=== PATIENT | female | born 1945 | race Caucasian/White ===

== ENCOUNTER → 2022-06-03 01:38 | Outpatient (CLI) | payer MEDICARE, SELFPAY ==
--- NOTE | 2022-06-03 07:30 | DI.CT_ITS ---
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 TECHNIQUE: Imaging Protocol: Axial computed tomography images with coronal and sagittal reformatted images were created and reviewed. CONTRAST MATERIAL: Intravenous: Omnipaque 350 Contrast volume:100mL COMPARISON: No exams were available for comparison FINDINGS: Orbits and orbital soft tissues: Within normal limits. Visualized paranasal sinuses: There is mucosal thickening in the visualized paranasal sinuses with s paring of the left sphenoid sinus. No fluid levels are seen. The mastoid air cells are clear. Nasopharynx: Within normal limits. Oropharynx: Within normal limits. Hypopharynx and larynx: The left aryepiglottic fold has a slightly more medial position compared to t he right. The left piriform sinus is larger than the right. The epiglottis has an unremarkable appe arance. No mass is seen in the region of the vocal cords. Retropharyngeal space: Within normal limits. Parotids/submandibular: Within normal limits. Thyroid gland: Within normal limits. Lymphadenopathy: There is scattered lymph nodes seen along the level one to level three all measurin g less than 8 mm in short axis diameter which are physiologic in nature. Trachea: Within normal limits. Lung apices: Bilateral apical scarring. Bones: Within normal limits for the patient's age. Carotids/Jugular: Within normal limits. Soft tissues: Within normal limits. IMPRESSION: 1. No evidence of a mass in the region of the vocal cords. 2. Slightly more medial position of the left aryepiglottic fold compared to the right. No mass is id entified. Direct visualization should be considered for further evaluation. RADIATION DOSE DELIVERED: 300.79mGy.cm Total DLP 300.79mGy.cm Total DLP DATA REPOSITORY: All CT scans at this facility are submitted to the National Radiology Data Registry (NRDR) Dose Index Registry (DIR) with the [employer] (ACR). RADIATION OPTIMIZATION: All CT scans at this facility use at least one of these dose optimization te chniques: automated exposure control; mA and/or kV adjustment per patient size (includes targeted exa ms where dose is matched to clinical indication); or iterative reconstruction.
[2022-06-03 13:35] LABS: CREATININE 0.9 mg/dL (0.55-1.02)
[2022-06-03] MEDS: Omnipaque 350 MG/ML 100 ML BTL IJ (14:13)
[2022-06-03] MEDS: Normal Saline Flush 10 ML SYR IVP (14:15)
== END ==
PROVIDERS: PCP Internal Medicine; Visit Provider Otolaryngology
DX: J38.01 Paralysis of vocal cords and larynx, unilateral (principal); R49.0 Dysphonia
CPT/HCPCS: 70491; 82565; J3490

== ENCOUNTER → 2022-10-17 00:15 | Outpatient (CLI) | payer MEDICARE, SELFPAY ==
--- OUTSIDE RECORDS SUMMARY | 2022-10-17 00:21 | XMS_ITS | Encounter Summary ---
:1945 Author Organization [facility] [place] [address] Care Team Providers Name Role Phone Arpita Thompson MD Primary Care Provider Reason for Visit Reason Onset Date Comments Medication Refill 06/27/2022 Encounter Details Date Type Department Care Team Description 06/27/2022 Refill Dermatology at [facility] Jennifer Young MD Dermatitis [address] [place] [address] [facility]DER[facility] [phone] [place], [place] [address] (Wo rk) Social History Tobacco Use Types Packs/Day Years Used Date Smoking Tobacco: Never Assessed Sex Assigned at Date Recorded Not on file documented as of this encounter Miscellaneous Notes Telephone Encounter - Ofe Gibbons CMA - 06/27/2022 10:01 AM EDT Medication(s) requested to refill hydroxyzine 10 mg Last visit: 06/16/22 Follow up recommended 4-6 weeks F/U Scheduled: 08/06/22 Assessment/Plan for this/these medications: eczematous dermatitis Special Considerations: none Order/orders pended and routed to Dr. Young for review and approval documented in this encounter Plan of Treatment Upcoming Encounters Date Type Specialty Care Team Description 10/29/2022 Office Visit Dermatology Alexandra Howell MD [facility] ER [address] [facility] [place], [place] [address] (Wo rk) documented as of this encounter Visit Diagnoses Diagnosis Dermatitis Contact dermatitis and other eczema, due to unspecified cause documented in this encounter Care Teams Landscape Management Technician Relationship Specialty Start Date End Date Arpita Thompson MD PCP - General General Internal Medicine 06/16/22 [address] [facility] [place] [address] documented as of this encounter
--- OUTSIDE RECORDS SUMMARY | 2022-10-17 00:21 | XMS_ITS | Encounter Summary ---
:1945 Author Organization [facility] [place] [address] Care Team Providers Name Role Phone Arpita Thompson MD Primary Care Provider Encounter Details Date Type Department Care Team Description 06/27/2022 Orders Only Dermatology at [facility] Jennifer Young MD Dermatitis [address] [facility] [place] [address] [facility]-DERMATOLOGY [phone] [place], [place] [address] (Wo rk) Social History Tobacco Use Types Packs/Day Years Used Date Smoking Tobacco: Never Assessed Sex Assigned at Date Recorded Not on file documented as of this encounter Plan of Treatment Upcoming Encounters Date Type Specialty Care Team Description 10/29/2022 Office Visit Dermatology Alexandra Howell MD [facility] ER [address] [facility], [place] [address] (Wo rk) documented as of this encounter Visit Diagnoses Diagnosis Dermatitis Contact dermatitis and other eczema, due to unspecified cause documented in this encounter Care Teams Shotgun Shell Assembly Machine Adjuster Relationship Specialty Start Date End Date Arpita Thompson MD PCP - General General Internal Medicine 06/16/[address] [place] [id number] documented as of this encounter
--- OUTSIDE RECORDS SUMMARY | 2022-10-17 00:21 | XMS_ITS | Encounter Summary ---
:1945 Author Organization [facility] [place] [address] Care Team Providers Name Role Phone Arpita Thompson MD Primary Care Provider Reason for Visit Reason Comments Rash Consultation (Urgent) - Authorized Specialty Diagnoses / Procedures Referred By Contact Refer red To Contact Dermatology Diagnoses Atopic Dermatitits, Unspecified Arpita Thompson MD [facility] Dermatology Procedures Atopic Dermatitits, Unspecified [address] [place] [place] [address] [place] [address] Referral ID Status Reason Start Expiration Visits Visits Date Date Requested Authorized [id number] Authorized Consult, 05/29/2022 05/29/2023 3 3 Test & Treat PCP Updated and/or Approved Encounter Details Date Type Department Care Team Description 06/16/2022 Office Visit Dermatology at [facility] Jennifer Young MD Dermatitis [address] [facility] [place] [address] [place] [address] RD-DERMATOLOGY [phone] [place], [place] [address] (Wo rk) Social History Tobacco Use Types Packs/Day Years Used Date Smoking Tobacco: Never Assessed Sex Assigned at Date Recorded Not on file documented as of this encounter Progress Notes Jennifer Young MD - 06/16/2022 11:00 AM EDT Images from the original note were not included. DEPARTMENT OF DERMATOLOGY Medical Dermatology Clinic Note Provider: Jennifer Young MD Patient's preferred name Domitila Preferred contact method for results []Phone []myD-H []Letter Detailed phone message OK? Y Are there any other people with whom we may discuss your care? Y Past Medical History Date, location, treatment Melanoma Dysplastic nevi SCC BCC AKs UV Exposure & Protection Other relevant past medical history Family History Details Melanoma * NMSC * Other relevant family history Social History Occupation: Hobbies: Other: Pre-Procedure Questions Details Allergy to lidocaine, epinephrine, Dermabond, chlorhexidine, or adhesives Bleeding disorder or blood thinners Implanted devices (Pacemaker, defibrillator, deep brain stimulator, cochlear implant) History of Present Illness: Domitila Frank is a 76 y.o. Patient is referred to the clinic at the request of Arpita Thompson for new rash. - Started on lower legs in February 11 that were very itchy and treated with ivermectin (twice) after PCP thought was scabies. No other topical steroids have been trialed. Here with her spouse Yunior. -She has been itching -Using Eucerin soap, colloidal oatmeal, Sarna Anti itch, cortisone cream & Cera Va lotion -Says from mid afternoon until nighttime itch rated as a 10 almost unbearable -Denies any new medications in past year other than itching medications -Taking Tumeric ~weeks -Was taking Tylenol for aches & pains, now takes Motrin instead -Denies any pets or any other people in home with similar rash -Has not treated with either oral or topical steroids Review of Systems: General: Feeling well. Skin: No other skin concerns. Medications: Reviewed in eD-H Allergies: Reviewed in eD-H Skin Examination: Full skin examination: Patient asked to undress to their comfort level. Verbalized that the provider???s preference is that the patient remove all clothing and that the provider will not examine areas patient elects to keep covered. Patient elects to keep underwear on and have the following examined: s calp, hair, face, ears, neck, chest, axillae, abdomen, back, and upper and lower extremities. Genitalia and buttocks were not examined. Assessment/Plan #. Favor eczematous dermatitis EXAM: Scattered pnk eroded papules on the arms, back, chest, and legs. Urticarial plaquess on the bilateral flanks - 4 month hx of pruritic rash. Denies new medication, personal care product. No close contact with similar symptoms. No pets. - Medications reviewed, no culprit medication identified - Recommend sensitive skin care, given extensive involvement will initiate on prednisone taper with topical steroids. If no improvement, consider biopsy PLAN: - Rx: Prednisone taper. 40mg each morning x 5 days, then 30mg each morning x 5 days, then 20mg each morning x 5 days. Reviewed side effects, including but not limited to GI upset, mood change, irritability, difficulty sleeping, increases in blood pressure, increase in blood sugar, thinning of skin andbones, osteonecrosis of the hip. - Start Rx: Hydroxyzine 10 mg tablet can take up to 3 tablets daily for itch - Discussed risks of prolonged topical corticosteroid use including atrophy, striae, hypopigmentation, tachyphylaxis. -Will plan to recheck in 4-6 weeks; if symptoms persist or worsen we will consider biopsy - Start Rx: Triamcinolone 0.1% cream: Apply twice daily to affected areas of the trunk and extremities for 14 days, then take 1 week off, repeat as needed. - Gentle skin care reviewed with patient, including: - Wash skin daily with gentle soap, such as Dove sensitive skin bar soap or Vanicream bar soap. Use soap only on armpits, groin, face, feet. - Take luke warm, not hot showers/baths. - Avoid scrubbing with sponge, loofah or washcloth. - Moisturize skin daily with vaseline or thick moisturizing cream such as Vanicream Moisturizing Cream, CeraVe Cream, or Aveeno Eczema Therapy Cream. Ideally, moisturizer should be applied immediately after bathing. - Use a fragrance free laundry detergent such as Tide Free & Gentle or All Free & Clear. Figure 1 Photo(s) taken and charted with patient's verbal consent. Other: ??? Reviewed external notes/records ??? OTC skin products discussed RTC: 4-6 weeks for rash f/u []Note routed to typing secretary []Recall placed in scheduling system []Appointment scheduled at checkout I performed the above scribed service and agree with the accuracy of the documentation in this encounter. Reviewed and signed by: Jennifer Young MD Dermatology [facility] Patient seen and evaluated with staff corporate health consultant: Bryan Trevino MD Department of Dermatology [facility] Bryan Trevino MD - 06/16/2022 11:00 AM EDT I directly supervised Dr. Young in the care of this patient. I saw and evaluated this patient with Dr. Young She presented the history and physical exam details to me, then we saw the patient together and I confirmed these findings. I agree with details as written.My physical examination confirms her findings. The assessment and plan were formulated in discussion with me at the time of visit and I agree with them as documented. Bryan Trevino MD FAAD Staff Physician Department of Dermatology documented in this encounter Plan of Treatment Upcoming Encounters Date Type Specialty Care Team Description 10/29/2022 Office Visit Dermatology Alexandra Howell MD [facility] ER [address] [facility], [place] [address] (Wo rk) documented as of this encounter Visit Diagnoses Diagnosis Dermatitis Contact dermatitis and other eczema, due to unspecified cause documented in this encounter Care Teams Enrichment Teacher Relationship Specialty Start Date End Date Arpita Thompson MD PCP - General General Internal Medicine 06/16/[address] [facility] [place] [address] documented as of this encounter
--- OUTSIDE RECORDS SUMMARY | 2022-10-17 00:21 | XMS_ITS | Clinical Summary ---
:1945 Author Organization [facility] [place] [address] Care Team Providers Name Role Phone Arpita Thompson MD Primary Care Provider Allergies Active Allergy Reactions Severity Noted Date Comments Sulfa (Sulfonamide Antibiotics) High CIS - Hives Medications Medication Sig Dispensed Refills Start Date End Date Status fluticasone-salmeter 0 06/25/2006 Active ol (ADVAIR DISKUS) 100-50 mcg/dose diskus inhaler cetirizine-psuedoeph 0 06/25/2006 Active edrine (ZYRTEC-D) 5-120 mg per tablet levothyroxine 0 06/25/2006 Activ e (SYNTHROID) 25 mcg tablet montelukast Take 10 mg by mouth 0 Active (Singulair) 10 mg nightly. Tablet triamcinolone Rx: triamcinolone 453.6 g 1 06/16/2022 Active (Kenalog) 0.1 % 0.1% cream: Apply CreamIndications: twice daily to Dermatitis affected areas for 14 days, then take 1 week off, repeat as needed. Do not apply to face, groin, and skin folds hydrOXYzine (Atarax) Take 1 tablet by 30 tablet 0 06/16/2022 Active 10 mg mouth 3 times daily TabletIndications: as needed for Dermatitis Itching. hydrOXYzine (Atarax) Take 1 tablet by 180 tablet 1 06/27/2022 Active 10 mg mouth 3 times daily TabletIndications: as needed for Dermatitis Itching. clobetasoL Apply topically to 60 g 3 07/09/2022 Active (Temovate) 0.05 % affected area on OintmentIndications: body twice a day Dermatitis for two weeks then take a week off and repeat as needed Active Problems No known active problems Encounters Date Type Specialty Care Team Description 08/11/2022 TH Visit Dermatology Kristen Howell MD Derm atitis; (TeleHealth) Allergic urtica abimael 07/24/2022 TH Visit Dermatology Kristen Howell MD Derm atitis (TeleHealth) from Last 3 Months Social History Tobacco Use Types Packs/Day Years Used Date Smoking Tobacco: Never Assessed Sex Assigned at Date Recorded Not on file Plan of Treatment Upcoming Encounters Date Type Specialty Care Team Description 10/29/2022 Office Visit Dermatology Alexandra Howell MD [facility] [address] [facility], [place] [address] (Wo rk) Health Maintenance Due Date Last Done Comments Covid-19 Vaccine (#1) 06/16/1946 Hepatitis C Screening 1965 Tdap adult 1966 Tetanus vaccine 1966 Breast Cancer Share Decision Needed 1987 Colonoscopy 1992 Breast Cancer screening 1997 Zoster vaccine (1 of 2) 1997 Advance Directive 2002 Bone Density Scan 2012 Pneumoccocal Vaccine: 65+ (1 - PCV) 2012 Influenza (Flu) vaccine (1 of 1 - Influenza standard 07/24/2022 series) Insurance Payer Benefit Plan / Subscriber ID Effective Dates Phone Addre ss Type Group [facility] MANAGED [facility] MANAGED [id number] 2021-Sarah [phone] [address] [address] MEDICARE MEDICARE t 5 [place] [address] Care Teams Pharm Spec Relationship Specialty Start Date End Date Arpita Thompson MD PCP - General General Internal Medicine 06/16/22 [address] [facility] [place] [address]
--- OUTSIDE RECORDS SUMMARY | 2022-10-17 00:21 | XMS_ITS | Encounter Summary ---
:1945 Author Organization [facility] [place] [address] Care Team Providers Name Role Phone Arpita Thompson MD Primary Care Provider Encounter Details Date Type Department Care Team Description 08/11/2022 TH Visit Dermatology at [facility] ermatitis; (TeleHealth) Irene Barragan MD Allergic urticaria [address] [place] [address] [facility] [phone] -DERMATOLOGY [place] [address] Social History Tobacco Use Types Packs/Day Years Used Date Smoking Tobacco: Never Assessed Sex Assigned at Date Recorded Not on file documented as of this encounter Progress Notes Kristen Howell MD - 08/11/2022 1:00 PM EDT Images from the original note were not included. DEPARTMENT OF DERMATOLOGY Medical Dermatology Clinic Provider: Kristen Howell MD Patient's preferred name Domitila Preferred contact method for results [x]?Phone []?myD-H []?Letter Detailed phone message OK? Yes Are there any other people with whom we may discuss your care? Past Medical History Date, location, treatment Melanoma ?? Dysplastic nevi ?? SCC ?? BCC ?? AKs ?? UV Exposure & Protection ?? Other relevant past medical history ?? Family History Details Melanoma ?? NMSC ?? Other relevant family history ?? Social History Occupation: Hobbies: Other: ?? Pre-Procedure Screening Details Allergy to lidocaine, epinephrine, Dermabond, chlorhexidine, or adhesives ?? Bleeding disorder or blood thinners ?? Implanted devices (Pacemaker, defibrillator, deep brain stimulator, cochlear implant) ?? History of Present Illness: Domitila Frank is a 76 y.o. Patient returns to clinic today for a rash. - patient reports 2 days after stopping the prednisone she started having spiratic rashes again. -patient is still using the clobetasol but until a few days ago she started the hydroxyzine - patient Desloratadine every morning, montelukast every night - patient reports most recent located on the right Last visit at Dermatology: 07/24/2022 Last visit with this provider: 07/24/2022 Medications: Reviewed in eD-H Allergies: Reviewed in eD-H Skin Examination: TeleHealth examination: Skin exam of the right ac fossa was performed via TeleHealth. Patient is aware that assessment may be limited by the TeleHealth video resolution. Assessment/Plan #.??Eczema with urticaria ??- faint pink papules and plaques. Exam limited by telehealth -??8??month hx of pruritic rash. Denies new medication, personal care product. No close contact withsimilar symptoms. No pets. - Recommend sensitive skin care, given extensive involvement will initiate on prednisone taper with topical steroids.?? -S/p punch biopsy showing, Superficial and mid-dermal perivascular and interstitial dermatitis associated with mild spongiosis PLAN:?? -??S/p??Rx: Prednisone taper.??60mg each morning x 5 days, then??40mg each morning x 5 days, then??20mg each morning x 5 days. Reviewed side effects, including but not limited to GI upset, mood change,irritability, difficulty sleeping, increases in blood pressure, increase in blood sugar, thinning ofskin and bones, osteonecrosis of the hip. -??Continue??Rx: Hydroxyzine 10 mg??take two??tablets before bedtime as needed - Discussed risks of prolonged topical corticosteroid use including atrophy, striae, hypopigmentation, tachyphylaxis.?? - Continue Rx clobetasol 0.05%??ointment:??Apply topically to affected area(s) on the??arms, legs, abdomen and back??twice daily for up to 2 weeks. Take 1 week off and then repeat cycle as needed. - Continue and increase OTC Desloratadine; take one in the morning and one at night. -Continue monteleukast at bedtime -labs faxed to [facility] TSH, CBC, CMP,ESR -Consider allergy referral at next appointment if no improvement Other: ??? N/A RTC: 4 to 6 weeks for rash follow up. [x]Note routed to legal administrative secretary []Recall placed in scheduling system []Appointment scheduled at checkout Scribe attestation: Berna Jon and Miesha Christine [facility] performed the documentation for this encounter in the presence of and acting as a scribe for Kristen Howell MD. I performed the above scribed service and agree with the accuracy of the documentation in this encounter. Reviewed and signed by: Kristen Howell MD Dermatology [facility] Patient seen and evaluated with staff associate director regulatory affairs: Maria Fernanda Car MD Dermatology [facility] Maria Fernanda Car MD - 08/11/2022 1:00 PM EDT I directly supervised Dr. Howell during this office visit. Dr. Howell presented the history and physical exam to me. I, then, saw and examined this patient with Dr. Howell. We reviewed the history and pertinent details and I confirmed the physical findings. I agree with the details of the history and physical exam as documented in Dr. Howell's note. MARIA FERNANDA CAR MD Staff Physician documented in this encounter Plan of Treatment Upcoming Encounters Date Type Specialty Care Team Description 10/29/2022 Office Visit Dermatology Alexandra Howell MD [facility] ER [address] [facility] [place], [place] [address] (Wo rk) Scheduled Orders Name Type Priority Associated Diagnoses Order S chedule CBC (with Diff) Lab Routine Allergic urticaria Expect ed: 08/11/2022, Expires: 2022 Comprehensive metabolic Lab Routine Allergic urticari a Expected: 08/11/2022, panel (non-fasting) Expires: 02/10/2023 Sedimentation rate Lab Routine Allergic urticaria Exp ected: 08/11/2022, Expires: 2022 documented as of this encounter Visit Diagnoses Diagnosis Dermatitis Contact dermatitis and other eczema, due to unspecified cause Allergic urticaria Allergic urticaria documented in this encounter Care Teams Wire Harness Assembler Relationship Specialty Start Date End Date Arpita Thompson MD PCP - General General Internal Medicine 06/16/22 [address] [facility] [place] [address] documented as of this encounter
--- OUTSIDE RECORDS SUMMARY | 2022-10-17 00:21 | XMS_ITS | Encounter Summary ---
:1945 Author Organization [facility] [place] [address] Care Team Providers Name Role Phone Arpita Thompson MD Primary Care Provider Encounter Details Date Type Department Care Team Description 07/24/2022 TH Visit Dermatology at [facility] ([facility]) Irene [address] [place] [address] [facility] [phone] [place] [id number] (Wo rk) Social History Tobacco Use Types Packs/Day Years Used Date Smoking Tobacco: Never Assessed Sex Assigned at Date Recorded Not on file documented as of this encounter Progress Notes Kristen Howell MD - 07/24/2022 10:40 AM EDT Images from the original note were not included. DEPARTMENT OF DERMATOLOGY Medical Dermatology Clinic Provider: Kristen Howell MD Patient's preferred name Domitila Preferred contact method for results [x]Phone []myD-H []Letter Detailed phone message OK? Yes Are there any other people with whom we may discuss your care? Past Medical History Date, location, treatment Melanoma Dysplastic nevi SCC BCC AKs UV Exposure & Protection Other relevant past medical history Family History Details Melanoma NMSC Other relevant family history Social History Occupation: Hobbies: Other: Pre-Procedure Screening Details Allergy to lidocaine, epinephrine, Dermabond, chlorhexidine, or adhesives Bleeding disorder or blood thinners Implanted devices (Pacemaker, defibrillator, deep brain stimulator, cochlear implant) History of Present Illness: Domitila Frank is a 76 y.o. Patient returns to clinic today for a rashfollow up. Patient reports that the rash is slowly getting better. Patient states she has 6 more days of the Prednisone taper. Patient nicolas any use of OTC supplements. Patient reports she is using Rx Clobetasol twice daily and reports she has not needed Rx Hydroxyzine nightly. Last visit at Dermatology: 07/09/2022 Last visit with this provider: 07/09/2022 Medications: Reviewed in eD-H Allergies: Reviewed in eD-H Skin Examination: Back and face examined today, exam limited to TH Assessment/Plan #. Eczema with urticaria - trunk, extremities, bilateral lower extremities, many pink, edematous papules, greatly improved from previous - 8 month hx of pruritic rash. Denies new medication, personal care product. No close contact with similar symptoms. No pets. - Medications reviewed, no culprit medication identified. COVID vaccine Sep 2021 - Recommend sensitive skin care, given extensive involvement will initiate on prednisone taper with topical steroids. -S/p punch biopsy showing, - Superficial and mid-dermal perivascular and interstitial dermatitis associated with ??mild spongiosis -Discussed biopsy findings with patient likely represent urtica with possible component of eczema, unclear inciting factor PLAN:?? - Finish??Rx: Prednisone taper.??60mg each morning x 5 days, then??40mg each morning x 5 days, then??20mg each morning x 5 days. Reviewed side effects, including but not limited to GI upset, mood change, irritability, difficulty sleeping, increases in blood pressure, increase in blood sugar, thinning of skin and bones, osteonecrosis of the hip. -??Continue Rx: Hydroxyzine 10 mg take two tablets before bedtime as needed - Discussed risks of prolonged topical corticosteroid use including atrophy, striae, hypopigmentation, tachyphylaxis.?? - Continue Rx clobetasol 0.05% ointment: Apply topically to affected area(s) on the arms, legs, abdomen and back twice daily for up to 2 weeks. Take 1 week off and then repeat cycle as needed. -Consider additional anti histamine or further lab f/u at next visit if flares Other: ??? N/A RTC: 3 weeks for rash follow up [x]Note routed to financial secretary []Recall placed in scheduling system []Appointment scheduled at checkout Scribe attestation: MANDY Jerez has performed the documentation for this encounter in the presence of and acting as a scribe for Kristen Howell MD. I performed the above scribed service and agree with the accuracy of the documentation in this encounter. Reviewed and signed by: Kristen Howell MD Dermatology [facility] Patient seen and evaluated with staff paint roller winder: Judy Collins MD Dermatology [facility] Judy Collins MD - 07/24/2022 10:40 AM EDT I directly supervised the Dermatology resident during this office visit. The resident presented the history and physical exam to me. I then saw and examined this patient with the resident. We reviewed the history and pertinent details and I confirmed the physical findings. I agree with the details of the history and physical exam as documented in the resident's note. JUDY COLLINS MD Staff Physician documented in this encounter Plan of Treatment Upcoming Encounters Date Type Specialty Care Team Description 10/29/2022 Office Visit Dermatology Alexandra Howell MD [facility] [address], [place] [address] (Wo rk) documented as of this encounter Visit Diagnoses Diagnosis Dermatitis Contact dermatitis and other eczema, due to unspecified cause documented in this encounter Care Teams Mine Engineer Relationship Specialty Start Date End Date Arpita Thompson MD PCP - General General Internal Medicine 06/16/22 [address] [place] [address] documented as of this encounter
--- OUTSIDE RECORDS SUMMARY | 2022-10-17 00:21 | XMS_ITS | Encounter Summary ---
:1945 Author Organization [facility] [place] [address] Care Team Providers Name Role Phone Arpita Thompson MD Primary Care Provider Reason for Visit Reason Comments Rash Encounter Details Date Type Department Care Team Description 07/09/2022 Office Visit Dermatology at [facility] eoplasm of unspecified behavior of bone, soft tissue, and skin; Irene Barragan MD Dermatitis [address] [place] [address] [facility] [phone] RD-DERMATOLOGY [place] [address] (Wo rk) Social History Tobacco Use Types Packs/Day Years Used Date Smoking Tobacco: Never Assessed Sex Assigned at Date Recorded Not on file documented as of this encounter Progress Notes Kristen Howell MD - 07/09/2022 4:20 PM EDT Images from the original note were not included. DEPARTMENT OF DERMATOLOGY Medical Dermatology Clinic Provider: Kristen Howell MD Patient's preferred name Domitila Preferred contact method for results []?Phone []?myD-H []?Letter Detailed phone message OK? Y Are there any other people with whom we may discuss your care? Y ?? Past Medical History Date, location, treatment Melanoma Dysplastic nevi SCC BCC AKs UV Exposure & Protection ?? Other relevant past medical history Family History Details Melanoma * NMSC * Other relevant family history Social History Occupation: Hobbies: Other: ?? Pre-Procedure Questions Details Allergy to lidocaine, epinephrine, Dermabond, chlorhexidine, or adhesives Bleeding disorder or blood thinners Implanted devices (Pacemaker, defibrillator, deep brain stimulator, cochlear implant) ?? History of Present Illness: Domitila Frank is a 76 y.o. Patient returns to clinic today for worsening atopic dermatitis. - Today she notes that she finished the 15 day course of prednisone 8 days ago and while it helped while on it the rash never cleared and she still had a mild underlying itch which has worsened since discontinuing. She is also taking hydroxyzine nightly and triamcinolone cream as prescribed with negligible itch improvement. She notes the itch has become unbearable in the last couple days and she was unable to sleep last night. - States that nighttime is the worst for itching. - States it feels as though she's pinched, then starts to itch. - Different areas itch at different times. - On the legs, backs of the thighs, the abdomen, the back and the groin. - No new medications prior to this most recent flare-up. - States her PCP tested her for scabies, which was negative. - Patient's is not itchy. - Stomach is better than the back. - Has used Aveeno for eczema, Sarna, Benadryl, had Epsom salt baths, does not take hot showers, usesDove sensitive skin soap. - Uses laundry detergents without fragrances (All Free and Clear). - Stated last COVID-19 booster was in September. - Patient does not eat gluten. - Has allergies to pollens, grasses, trees, molds, dander. Last visit at Dermatology: 06/16/2022 Last visit with this provider: Visit date not found Medications: Reviewed in eD-H Allergies: Reviewed in eD-H Skin Examination: Focused skin examination of the bilateral upper and lower extremities, back and abdomen was normal with the exception of the findings below. Assessment/Plan #. Eczema vs. Allergic contact dermatitis vs. Arthropod assault vs. other - trunk, extremities, bilateral lower extremities, many pink, edematous papules, some coalescing into plaques (Figures 1 - 3). Not improved - 8 month hx of pruritic rash. Denies new medication, personal care product. No close contact with similar symptoms. No pets. - Medications reviewed, no culprit medication identified. - Recommend sensitive skin care, given extensive involvement will initiate on prednisone taper with topical steroids. - Advised that this may be due to undergarment material. Recommended patient try all-cotton PLAN: - Start Rx: Prednisone taper. 60mg each morning x 5 days, then 40mg each morning x 5 days, then 20mgeach morning x 5 days. Reviewed side effects, including but not limited to GI upset, mood change, irritability, difficulty sleeping, increases in blood pressure, increase in blood sugar, thinning of skin and bones, osteonecrosis of the hip. - Increase Rx: Hydroxyzine 10 mg take two tablets before bedtime. - Discussed risks of prolonged topical corticosteroid use including atrophy, striae, hypopigmentation, tachyphylaxis. - Will plan to recheck in 10-14 days. - Stop??Rx: Triamcinolone 0.1% cream. - Start Rx clobetasol 0.05% ointment: Apply topically to affected area(s) on the arms, legs, abdomenand back twice daily for up to 2 weeks. Take 1 week off and then repeat cycle as needed. - Recommended a skin biopsy. After discussion of potential risks (scarring, bleeding, infection), patient agreed to proceed. - Patient denies known allergies to lidocaine and epinephrine. Procedure: Skin punch biopsy. Location: left lower back Discussed indications for the procedure and expectations including risks and benefits. Verbal consent obtained. Time out performed. Skin prepped with alcohol. Local anesthesia with 1% xylocaine, 1/100,000 epinephrine. A 4 mm punch biopsy to the level of the subcutis was performed. Specimen submitted to Pathology. Wound closed with monofilament suture. There were no complications; patient tolerated the procedure well. Wound dressed. Post-procedure expectations (including discomfort management), woundcare and activity restrictions reviewed. - Follow-up based on pathology results. - Suture removal: 14 days. Figure 1 Figure 2 Figure 3 Photo(s) taken and charted with patient's verbal consent. Other: ??? N/A RTC: 10-14 days for follow-up/biopsy review and suture removal []Note routed to company secretary []Recall placed in scheduling system [x]Appointment scheduled at checkout Scribe attestation: Dylan J Lakhwinder has performed the documentation for this encounter in the presence of and acting as a scribe for Kristen Howell MD. I performed the above scribed service and agree with the accuracy of the documentation in this encounter. Reviewed and signed by: Kristen Howell MD Dermatology [facility] Patient seen and evaluated with staff supervisor paper testing: Shyla Bhatti MD Dermatology [facility] Shyla Bhatti MD - 07/09/2022 4:20 PM EDT I directly supervised the resident during this office visit. The resident physician presented the history and physical exam to me. I then saw and examined this patient with the resident. We reviewed the history and pertinent details and I confirmed the physical exam findings. I agree with the details of the history and physical exam as documented in the resident physician's note. Shyla Bhatti MD Staff Physician [facility] Dermatology documented in this encounter Plan of Treatment Upcoming Encounters Date Type Specialty Care Team Description 10/29/2022 Office Visit Dermatology Alexandra Howell MD [facility] [address] [address] (Wo rk) documented as of this encounter Procedures Procedure Name Priority Date/Time Associated Diagnosis Comme nts SPECIMEN TO Routine 07/09/2022 5:16 PM Neoplasm of Results f or this PATHOLOGY EDT unspecified behavior procedu re are in of bone, soft the results tissue, and skin section. SURGICAL PATHOLOGY Routine 07/09/2022 4:46 PM Res ults for this REPORT EDT procedure are i n the results section. documented in this encounter Results Specimen to Pathology (07/09/2022 5:16 PM EDT) Specimen Anatomical Collection Method Collection Time Receive d Time (Source) Location / / Volume Laterality AP Specimen 07/09/2022 5:16 PM 2 5:17 EDT PM EDT Narrative [facility] - 07/09/2022 5:17 PM EDT Specimen requisition ordered. ??Separate Pathology report to follow Shyla Bhatti MD PATHOLOGY/CYTOLOGY ORDERABLE S Performing Organization Address City/State/[place] [address] Surgical Pathology Report (07/09/2022 4:46 PM EDT) Component Value Ref Test Analysis Performed At [facility] gist Range Method Time Signature Surgical [id number] ? Location: [facility] Report The signing pathologist has (i) examined the relevant preparation(s) for the [facility] specimen(s) and (ii) rendered or confirmed the diagnosis(es) . HOSPITAL LABORATORY . ?Surgic al Pathology DIAGNOSIS A - Left lower back, skin punch biopsy: - Superficial and mid-dermal perivascular and interstitial dermatitis associated with mild spongiosis ??(see discussion) Electronically signed by: ?Tisha Cano MD Verified: ??07/18/2022 18:31 ??Dermatopathologist Performed at: ??-[facility] Dept. of Pathology, [place], [place] DISCUSSION Sections show mild spongiosis and a superficial and mid-de rmal perivascular and ??interstitial lymphohi stiocytic infiltrate with eosinophils and ?neutrophils. No fungal hyphae are detected with a PAS stain. The differential diagnosis includes an eczematous hypersensitivity reaction with overlapping urticarial-type features, such as in the setting of medica tions, arthropod bite or contactants. Clinicopathologic correlation is recommended. ADDITIONAL STUDIES PAS/Fungus stain is negative for fungal organisms. SPECIMEN(S) SUBMITTED A - left lower back, skin punch (1) CLINICAL INFORMATION eczema versus allergic conta ct dermatitis versus arthropod assault versus other-many pink, edematous papules, some coalescing into plaques SPECIMEN PROCESSING A - Labeled/Fixative: Patient demographics, formalin. Quantity/Size: ??Single, 0.4 x 0.4 cm, excised to a depth of 0.6 cm. Tissue Description: Punch of flynn-pink skin. Sections/Processing: Inked, bisected and entirely submitted in 1 cassette labeled A1. ??nrl Specimen (Source) Anatomical Collection Method Collection Time Re ceived Time Location / / Volume Laterality 07/09/2022 4:46 PM EDT Kristen Howell MD PATHOLOGY/CYTOLOGY ORDERABLE S Performing Organization Address City/State/[place] [address] documented in this encounter Visit Diagnoses Diagnosis Neoplasm of unspecified behavior of bone , soft tissue, and skin Dermatitis Contact dermatitis and other eczema, due to unspecified cause documented in this encounter Care Teams Exceptional Children'[employer] Teacher Relationship Specialty Start Date End Date Arpita Thompson MD PCP - General General Internal Medicine 06/16/22 [address] [place] [address] documented as of this encounter
[2022-10-17 13:56] LABS: CREATININE 0.8 mg/dL (0.55-1.02); Estimated GFR 77.27 (mL/min/1.73m2)
--- NOTE | 2022-10-17 14:30 | DI.CT_ITS ---
Exam(s) CT CHEST W EXAM: CT CHEST W CLINICAL HISTORY: LT VOCAL FOLD PARALYSIS, PRIOR NECK CT CLEAR TECHNIQUE: CT examination of the chest was performed with intravenous infusion of 70 cc of Omnipaque 350. COMPARISON: No exams were available for comparison FINDINGS: There is a severe right convex thoracic scoliosis. The lungs are predominantly clear with mild bibasilar atelectasis and/or scarring .. There is no faustina dence of pleural effusion. There is no evidence of pulmonary embolic disease. There is unremarkable appearance of the thoracic aorta and major branches with no evidence of aneurysm or dissection. There is no mediastinal or hilar adenopathy. Tracheobronchial tree appears intact. No axillary or supraclavicular adenopathy. Incidental small hepatic cyst noted. Otherwise, visualized portions of the liver, spleen, adrenals, and kidneys are unremarkable. Note is made of coronary artery calcification. IMPRESSION: No evidence of mediastinal mass,incidental finding of coronary artery calcification.. RADIATION DOSE DELIVERED: Total DLP Total DLP DATA REPOSITORY: All CT scans at this facility are submitted to the National Radiology Data Registry (NRDR) Dose Index Registry (DIR) with the [employer] (ACR). RADIATION OPTIMIZATION: All CT scans at this facility use at least one of these dose optimization te chniques: automated exposure control; mA and/or kV adjustment per patient size (includes targeted exa ms where dose is matched to clinical indication); or iterative reconstruction.
[2022-10-17] MEDS: Normal Saline - Diluent 50 ML VIAL IJ (15:03)
[2022-10-17] MEDS: Omnipaque 350 MG/ML 500 ML BTL-Imaging package 70 ML IJ (15:03)
[2022-10-17] MEDS: Normal Saline Flush 10 ML SYR IVP (15:04)
== END ==
PROVIDERS: PCP Internal Medicine; Visit Provider Otolaryngology
DX: I25.10 Atherosclerotic heart disease of native coronary artery without angina pectoris (principal); J38.01 Paralysis of vocal cords and larynx, unilateral; R49.0 Dysphonia
CPT/HCPCS: 71260; 82565